=== PATIENT | male | born 1995 | race African-American/Black ===

== ENCOUNTER 2022-12-07 08:45 | Emergency (ER) | payer BC ==
[~2022-12-07] VITALS: Ht 182.9 cm; Wt 80.0 kg
[2022-12-07] MEDS ORDERED: FENTANYL CITRATE/PF 50MCG/ML 2ML VIAL IM ONE (09:45)
[2022-12-07] MEDS ORDERED: LIDOCAINE HCL 1% 20ML VIAL (Pyxis) INJ INFIL ONE (09:45)
[2022-12-07 10:23] VITALS: BP 127/72
== END 2022-12-07 11:50 | disposition home or self-care (01) ==
LOC: ER 09:08
DX: S43.005A Unspecified dislocation of left shoulder joint, initial encounter (principal); X58.XXXA Exposure to other specified factors, initial encounter; Y93.89 Activity, other specified; Y92.89 Other specified places as the place of occurrence of the external cause; Y99.8 Other external cause status
CPT/HCPCS: 23650; 73030; 96372; 99284; J3010; J3490; Z7610; 99283